=== PATIENT | male | born 1960 | race Caucasian/White ===

== ENCOUNTER 2017-02-16 09:27 | Inpatient (IN) | payer OTHER ==
[~2017-02-16] VITALS: Ht 180.3 cm; Wt 74.5 kg
[~2017-02-16 09:27] MED LIST: ETOMIDATE 20 MG/10 ML ONE; MIDAZOLAM 1 MG/ML, 5ML ONE; SUCCINYLCHOLINE 20 MG/ML, 10ML ONE
[2017-02-16] MEDS ORDERED: SODIUM CHLORIDE 0.9% 1,000 ML IV ONE (09:37)
[2017-02-16] MEDS ORDERED: ONDANSETRON 2MG/ML, 2ML ONE ×2 (09:47→13:04)
[2017-02-16] MEDS ORDERED: LORazepam 2 MG/ML, 1ML ONE ×7 (09:48→13:05)
[2017-02-16] MEDS: LORazepam 2 MG/ML, 1ML IVPush PRN ×8 (09:56→13:08)
[2017-02-16] MEDS ORDERED: SODIUM CHLORIDE FLUSH 10ML SYR IVF ONE (10:00)
[2017-02-16] MEDS ORDERED: PLEASE ENTER ALLERGIES MC SCH ×2 (10:00)
[2017-02-16] MEDS ORDERED: PLEASE ENTER HEIGHT AND WEIGHT MC SCH (10:00)
[2017-02-16] MEDS ORDERED: SODIUM CHLORIDE 0.9% 1,000ML IVBOLUS ONE ×2 (10:00→12:00)
[2017-02-16] MEDS ORDERED: ONDANSETRON 2MG/ML, 2ML IVPush ONE (10:00)
[2017-02-16 10:03] LABS: HEMATOCRIT 51.1 % (39.2-51.8); HEMOGLOBIN 17.4 g/dL (13.7-18.0); WHITE BLOOD COUNT 15.5 x10^3/uL (3.4-10)
[2017-02-16 10:17] LABS: BLOOD UREA NITROGEN 11 mg/dL (7-18)
[2017-02-16 10:25] LABS: ASPARTATE AMINO TRANSFERASE 160 U/L (15-37); IS PT STATUS REG ER OR PRE ER? YES
[2017-02-16] MEDS ORDERED: THIAMINE 100 MG in SODIUM CHLORIDE 0.9% 50 ML IVPB ONE (12:00)
[2017-02-16] MEDS ORDERED: CEFTRIAXONE PMX 1GM/50ML 50 ML IV ONE (12:00)
[2017-02-16] MEDS ORDERED: CEFTRIAXONE PMX 1GM/50ML 50 ML ONE (12:01)
[2017-02-16] MEDS ORDERED: MIDAZOLAM HCL 25 MG in SODIUM CHLORIDE 0.9% 245 ML IV PRN (14:12)
[2017-02-16] MEDS ORDERED: SUCCINYLCHOLINE 20 MG/ML, 10ML IVPush ONE (14:30)
[2017-02-16] MEDS ORDERED: ETOMIDATE 20 MG/10 ML IV ONE (14:30)
[2017-02-16] MEDS ORDERED: HYDROmorphone 1 MG/ML, 1ML ONE ×2 (14:38→16:12)
[2017-02-16] MEDS: HYDROmorphone 1 MG/ML, 1ML IVPush PRN ×2 (14:39→19:30)
[2017-02-16 14:49] LABS: ABG COLLECTION SITE RIGHT RADIAL; COLLATERAL CIRCULATION TESTING NORMAL
[2017-02-16] MEDS ORDERED: ACETAMINOPHEN 500 MG TABLET ONE (15:05)
[2017-02-16] MEDS ORDERED: ACETAMINOPHEN 500 MG TABLET PO ONE (15:30)
[2017-02-16] MEDS ORDERED: SENNA/DOCUSATE TABLET NG PRN (16:00)
[2017-02-16] MEDS ORDERED: SODIUM CHLORIDE 0.9% 1,000ML IV SCH (16:00)
[2017-02-16] MEDS ORDERED: BISACODYL 10 MG SUPP PR PRN ×2 (16:00→16:30)
[2017-02-16] MEDS ORDERED: PHARMACY MAY ADJ FOR RENAL FX MC SCH (16:00)
[2017-02-16] MEDS ORDERED: LIDOCAINE-MPF 1%, 2ML ENDO PRN (16:00)
[2017-02-16] MEDS ORDERED: LACTULOSE 20 GM/30 ML UDC NG PRN (16:00)
[2017-02-16] MEDS: ALBUTEROL/IPRATROPIUM 2.5MG/0.5MG, 3 ML INLINE SCH ×2 (16:00→20:00)
[2017-02-16] MEDS ORDERED: SENNOSIDES 8.8 MG/5 ML ORAL SOL NG PRN (16:00)
[2017-02-16] MEDS ORDERED: HEPARIN 5,000 UNITS/ML, 1ML ONE (16:12)
[2017-02-16] MEDS: HEPARIN 5,000 UNITS/ML, 1ML SQ SCH ×2 (16:15→23:53)
[2017-02-16] MEDS ORDERED: DIAZEPAM 5 MG/ML, 2ML ONE (16:16)
[2017-02-16] MEDS ORDERED: FAMOTIDINE 20 MG/2 ML ONE (16:16)
[2017-02-16] MEDS: FAMOTIDINE 20 MG/2 ML IV SCH (16:22)
[2017-02-16] MEDS: DIAZEPAM 5 MG/ML, 10ML VIAL IV SCH ×2 (16:22→21:04)
[2017-02-16] MEDS ORDERED: PIPERACILLIN/TAZO/PMX 3.375GM 50 ML ONE (16:23)
[2017-02-16] MEDS ORDERED: POLYETHYLENE GLYCOL 17 GM PACKET PO PRN (16:30)
[2017-02-16] MEDS ORDERED: DOCUSATE 100 MG CAPSULE PO PRN (16:30)
[2017-02-16] MEDS: PIPERACILLIN/TAZO/PMX 3.375GM 50 ML IV SCH ×2 (16:35→22:14)
[2017-02-16] MEDS: THIAMINE 100 MG, MVI ADULT 10 ML, FOLIC ACID 1 MG in D5%-0.9% NACL 1,000 ML IV SCH (17:00)
[2017-02-16 17:34] LABS: BLOOD UREA NITROGEN 11 mg/dL (7-18)
[2017-02-16] MEDS ORDERED: IBUPROFEN 200 MG TABLET ONE (18:22)
[2017-02-16] MEDS: IBUPROFEN 800 MG TABLET PO PRN (18:30)
[2017-02-16] MEDS ORDERED: ALBUTEROL/IPRATROPIUM 2.5MG/0.5MG, 3 ML ONE (18:35)
[2017-02-16] MEDS ORDERED: MIDAZOLAM HCL 50 MG in SODIUM CHLORIDE 0.9% 240 ML IV PRN (19:30)
[2017-02-16 20:00] VITALS: BP 81/54
[2017-02-16 20:14] LABS: ABG COLLECTION SITE RIGHT BRACHIAL
[2017-02-17] MEDS ORDERED: DIAZEPAM 5 MG/ML, 2ML IV PRN (00:30)
[2017-02-17] MEDS: DIAZEPAM 5 MG/ML, 10ML VIAL IV SCH ×6 (01:25→20:50)
[2017-02-17] MEDS: IBUPROFEN 800 MG TABLET PO PRN ×2 (03:32→16:08)
[2017-02-17 04:00] VITALS: BP 120/60
[2017-02-17 04:34] LABS: ABG COLLECTION SITE RIGHT RADIAL
[2017-02-17 04:35] LABS: COLLATERAL CIRCULATION TESTING NORMAL
[2017-02-17 04:45] LABS: BLOOD UREA NITROGEN 12 mg/dL (7-18)
[2017-02-17 04:48] LABS: ASPARTATE AMINO TRANSFERASE 144 U/L (15-37)
[2017-02-17 04:55] LABS: HEMATOCRIT 43.4 % (39.2-51.8); HEMOGLOBIN 14.7 g/dL (13.7-18.0); WHITE BLOOD COUNT 11.6 x10^3/uL (3.4-10)
[2017-02-17] MEDS: FAMOTIDINE 20 MG/2 ML IV SCH ×2 (05:03→16:11)
[2017-02-17] MEDS: PIPERACILLIN/TAZO/PMX 3.375GM 50 ML IV SCH ×4 (05:04→22:19)
[2017-02-17] MEDS: ALBUTEROL/IPRATROPIUM 2.5MG/0.5MG, 3 ML INLINE SCH ×7 (07:19→22:10)
[2017-02-17] MEDS: HEPARIN 5,000 UNITS/ML, 1ML SQ SCH ×2 (08:51→16:11)
[2017-02-17 09:59] LABS: DAU SCREEN DISCLAIMER
[2017-02-17] MEDS: SODIUM CHLORIDE 0.9% 1,000 ML IV SCH (10:54)
[2017-02-17] MEDS ORDERED: ACETAMINOPHEN 650 MG/20.3 ML UDC ONE (11:20)
[2017-02-17] MEDS ORDERED: ACETAMINOPHEN 650 MG/20.3 ML UDC PO PRN ×2 (11:30→20:00)
[2017-02-17] MEDS: THIAMINE 100 MG, MVI ADULT 10 ML, FOLIC ACID 1 MG in D5%-0.9% NACL 1,000 ML IV SCH (16:08)
[2017-02-17] MEDS ORDERED: DIAZEPAM 5 MG/ML, 10ML VIAL IVPush PRN ×2 (17:00→20:00)
[2017-02-17] MEDS ORDERED: BISACODYL 10 MG SUPP PR PRN ×2 (20:00)
[2017-02-17] MEDS ORDERED: SENNA/DOCUSATE TABLET NG PRN (20:00)
[2017-02-17] MEDS ORDERED: LACTULOSE 20 GM/30 ML UDC NG PRN (20:00)
[2017-02-17] MEDS ORDERED: DOCUSATE 100 MG CAPSULE PO PRN (20:00)
[2017-02-17] MEDS ORDERED: SENNOSIDES 8.8 MG/5 ML ORAL SOL NG PRN (20:00)
[2017-02-17] MEDS ORDERED: PHARMACY MAY ADJ FOR RENAL FX MC SCH (20:00)
[2017-02-17] MEDS: LIDOCAINE-MPF 1%, 2ML ENDO PRN (21:00)
[2017-02-18] MEDS: HEPARIN 5,000 UNITS/ML, 1ML SQ SCH ×3 (00:14→16:33)
[2017-02-18] MEDS: IBUPROFEN 800 MG TABLET PO PRN ×3 (00:38→20:12)
[2017-02-18] MEDS: DIAZEPAM 5 MG/ML, 10ML VIAL IV SCH ×5 (01:01→16:33)
[2017-02-18] MEDS: ALBUTEROL/IPRATROPIUM 2.5MG/0.5MG, 3 ML INLINE SCH ×6 (02:10→20:12)
[2017-02-18] MEDS: SODIUM CHLORIDE 0.9% 1,000 ML IV SCH ×3 (03:12→22:16)
[2017-02-18] MEDS: PIPERACILLIN/TAZO/PMX 3.375GM 50 ML IV SCH ×4 (03:48→22:19)
[2017-02-18] MEDS: FAMOTIDINE 20 MG/2 ML IV SCH ×2 (03:48→16:33)
[2017-02-18 04:00] VITALS: BP 105/63
[2017-02-18 04:45] LABS: ABG COLLECTION SITE RIGHT RADIAL; COLLATERAL CIRCULATION TESTING NORMAL
[2017-02-18 04:48] LABS: HEMATOCRIT 40.5 % (39.2-51.8); HEMOGLOBIN 13.8 g/dL (13.7-18.0); WHITE BLOOD COUNT 9.1 x10^3/uL (3.4-10)
[2017-02-18 04:57] LABS: ASPARTATE AMINO TRANSFERASE 111 U/L (15-37); BLOOD UREA NITROGEN 11 mg/dL (7-18)
[2017-02-18] MEDS ORDERED: DIAZEPAM 5 MG/ML, 10ML VIAL IV SCH (10:00)
[2017-02-18] MEDS ORDERED: POTASSIUM CHLORIDE 20 MEQ TAB.ER.PRT PO ONE (10:30)
[2017-02-18] MEDS ORDERED: DIAZEPAM 5 MG/ML, 10ML VIAL IVPush PRN (13:00)
[2017-02-18] MEDS: THIAMINE 100 MG, MVI ADULT 10 ML, FOLIC ACID 1 MG in D5%-0.9% NACL 1,000 ML IV SCH (16:30)
[2017-02-18] MEDS: FENTANYL PF 100 MCG/2ML IVPush PRN ×2 (20:13→20:40)
[2017-02-19] MEDS: HEPARIN 5,000 UNITS/ML, 1ML SQ SCH ×3 (00:15→16:58)
[2017-02-19] MEDS: ALBUTEROL/IPRATROPIUM 2.5MG/0.5MG, 3 ML INLINE SCH ×6 (02:00→22:00)
[2017-02-19 04:29] LABS: ABG COLLECTION SITE RIGHT RADIAL
[2017-02-19] MEDS: FAMOTIDINE 20 MG/2 ML IV SCH ×2 (04:29→16:57)
[2017-02-19] MEDS: PIPERACILLIN/TAZO/PMX 3.375GM 50 ML IV SCH ×4 (04:29→22:22)
[2017-02-19] MEDS: DIAZEPAM 5 MG/ML, 10ML VIAL IV SCH ×4 (04:29→22:22)
[2017-02-19 04:30] LABS: COLLATERAL CIRCULATION TESTING NORMAL
[2017-02-19 04:42] LABS: BLOOD UREA NITROGEN 9 mg/dL (7-18)
[2017-02-19 04:54] LABS: HEMOGLOBIN 13.7 g/dL (13.7-18.0); WHITE BLOOD COUNT 7.2 x10^3/uL (3.4-10)
[2017-02-19 05:00] VITALS: BP 153/85
[2017-02-19] MEDS: THIAMINE 100MG TABLET PO SCH (10:51)
[2017-02-19] MEDS: IBUPROFEN 800 MG TABLET PO PRN ×2 (10:51→21:06)
[2017-02-19] MEDS: MULTIVITAMIN 1 TABLET PO SCH (10:51)
[2017-02-19] MEDS: FOLIC ACID 1 MG TABLET PO SCH (10:52)
[2017-02-19] MEDS: FENTANYL PF 100 MCG/2ML IVPush PRN (21:06)
[2017-02-20] MEDS: HEPARIN 5,000 UNITS/ML, 1ML SQ SCH ×3 (00:30→18:25)
[2017-02-20] MEDS: ALBUTEROL/IPRATROPIUM 2.5MG/0.5MG, 3 ML INLINE SCH ×7 (01:31→21:21)
[2017-02-20 04:09] VITALS: BP 135/84
[2017-02-20 04:33] LABS: ABG COLLECTION SITE RIGHT RADIAL; COLLATERAL CIRCULATION TESTING NORMAL
[2017-02-20 04:39] LABS: HEMATOCRIT 40.8 % (39.2-51.8); HEMOGLOBIN 13.6 g/dL (13.7-18.0); WHITE BLOOD COUNT 6.4 x10^3/uL (3.4-10)
[2017-02-20] MEDS: DIAZEPAM 5 MG/ML, 10ML VIAL IV SCH ×4 (04:45→22:03)
[2017-02-20] MEDS: FAMOTIDINE 20 MG/2 ML IV SCH ×2 (04:46→18:25)
[2017-02-20] MEDS: PIPERACILLIN/TAZO/PMX 3.375GM 50 ML IV SCH (04:46)
[2017-02-20 04:49] LABS: ASPARTATE AMINO TRANSFERASE 76 U/L (15-37); BLOOD UREA NITROGEN 10 mg/dL (7-18)
[2017-02-20] MEDS ORDERED: POTASSIUM CHLORIDE 10% 40 MEQ/30 ML UDC PO ONE (07:30)
[2017-02-20] MEDS: AMPICILLIN/SULBACTAM 3 GM in SODIUM CHLORIDE 0.9% 100 ML IV SCH ×3 (07:37→20:25)
[2017-02-20] MEDS ORDERED: PROPOFOL 100 ML IV ONE (09:22)
[2017-02-20] MEDS: LIDOCAINE-MPF 1%, 2ML ENDO PRN (10:30)
[2017-02-20] MEDS: IBUPROFEN 800 MG TABLET PO PRN (12:22)
[2017-02-20] MEDS: FOLIC ACID 1 MG TABLET PO SCH (12:23)
[2017-02-20] MEDS: MULTIVITAMIN 1 TABLET PO SCH (12:23)
[2017-02-20] MEDS: THIAMINE 100MG TABLET PO SCH (12:23)
[2017-02-20] MEDS ORDERED: PROPOFOL 100 ML IV PRN (12:30)
[2017-02-21] MEDS: ALBUTEROL/IPRATROPIUM 2.5MG/0.5MG, 3 ML INLINE SCH ×6 (01:32→22:00)
[2017-02-21] MEDS: AMPICILLIN/SULBACTAM 3 GM in SODIUM CHLORIDE 0.9% 100 ML IV SCH ×4 (02:30→19:59)
[2017-02-21] MEDS: HEPARIN 5,000 UNITS/ML, 1ML SQ SCH ×4 (02:30→23:28)
[2017-02-21 04:21] VITALS: BP 136/77
[2017-02-21 04:29] LABS: ABG COLLECTION SITE LEFT RADIAL; COLLATERAL CIRCULATION TESTING NORMAL
[2017-02-21 04:30] LABS: HEMATOCRIT 41.2 % (39.2-51.8); HEMOGLOBIN 13.8 g/dL (13.7-18.0); WHITE BLOOD COUNT 8.3 x10^3/uL (3.4-10)
[2017-02-21 04:41] LABS: BLOOD UREA NITROGEN 15 mg/dL (7-18)
[2017-02-21] MEDS: DIAZEPAM 5 MG/ML, 10ML VIAL IV SCH ×4 (05:02→22:03)
[2017-02-21] MEDS: FAMOTIDINE 20 MG/2 ML IV SCH ×2 (05:02→15:56)
[2017-02-21] MEDS: IBUPROFEN 800 MG TABLET PO PRN ×2 (05:02→15:58)
[2017-02-21] MEDS: MULTIVITAMIN 1 TABLET PO SCH (08:21)
[2017-02-21] MEDS: THIAMINE 100MG TABLET PO SCH (08:21)
[2017-02-21] MEDS: FOLIC ACID 1 MG TABLET PO SCH (08:23)
[2017-02-21] MEDS: CIPROFLOXACIN OPHTH SOLN 0.3%, 5ML EACHEYE SCH (22:03)
[2017-02-22] MEDS: IBUPROFEN 800 MG TABLET PO PRN ×3 (00:13→22:08)
[2017-02-22] MEDS: AMPICILLIN/SULBACTAM 3 GM in SODIUM CHLORIDE 0.9% 100 ML IV SCH ×4 (01:16→19:43)
[2017-02-22] MEDS: ALBUTEROL/IPRATROPIUM 2.5MG/0.5MG, 3 ML INLINE SCH ×6 (02:00→22:00)
[2017-02-22] MEDS: DIAZEPAM 5 MG/ML, 10ML VIAL IV SCH ×4 (04:00→22:00)
[2017-02-22 04:36] LABS: ABG COLLECTION SITE LEFT RADIAL; COLLATERAL CIRCULATION TESTING NORMAL
[2017-02-22] MEDS: FAMOTIDINE 20 MG/2 ML IV SCH ×2 (04:36→16:45)
[2017-02-22 04:38] LABS: HEMATOCRIT 40.2 % (39.2-51.8); HEMOGLOBIN 13.5 g/dL (13.7-18.0); WHITE BLOOD COUNT 8.2 x10^3/uL (3.4-10)
[2017-02-22 04:47] LABS: BLOOD UREA NITROGEN 19 mg/dL (7-18)
[2017-02-22] MEDS: HEPARIN 5,000 UNITS/ML, 1ML SQ SCH ×3 (08:32→23:54)
[2017-02-22] MEDS: CIPROFLOXACIN OPHTH SOLN 0.3%, 5ML EACHEYE SCH ×2 (08:33→20:42)
[2017-02-22] MEDS: MULTIVITAMIN 1 TABLET PO SCH (08:33)
[2017-02-22] MEDS: FOLIC ACID 1 MG TABLET PO SCH (08:33)
[2017-02-22] MEDS: THIAMINE 100MG TABLET PO SCH (08:33)
[2017-02-22] MEDS ORDERED: SODIUM CHLORIDE 0.9% 250 ML IV SCH (14:00)
[2017-02-22] MEDS: hydrALAzine 20 MG/ML, 1ML IV PRN (20:42)
[2017-02-23] MEDS: AMPICILLIN/SULBACTAM 3 GM in SODIUM CHLORIDE 0.9% 100 ML IV SCH ×4 (01:24→21:54)
[2017-02-23] MEDS: ALBUTEROL/IPRATROPIUM 2.5MG/0.5MG, 3 ML INLINE SCH ×6 (02:40→22:15)
[2017-02-23] MEDS: DIAZEPAM 5 MG/ML, 10ML VIAL IV SCH ×4 (04:00→22:01)
[2017-02-23 04:24] LABS: ABG COLLECTION SITE RIGHT RADIAL; COLLATERAL CIRCULATION TESTING NORMAL
[2017-02-23 04:38] LABS: BLOOD UREA NITROGEN 22 mg/dL (7-18)
[2017-02-23 04:44] LABS: HEMATOCRIT 43.1 % (39.2-51.8); HEMOGLOBIN 14.3 g/dL (13.7-18.0); WHITE BLOOD COUNT 9.9 x10^3/uL (3.4-10)
[2017-02-23] MEDS: FAMOTIDINE 20 MG/2 ML IV SCH (05:03)
[2017-02-23] MEDS: HEPARIN 5,000 UNITS/ML, 1ML SQ SCH ×2 (09:06→16:14)
[2017-02-23] MEDS: FOLIC ACID 1 MG TABLET PO SCH (09:07)
[2017-02-23] MEDS: THIAMINE 100MG TABLET PO SCH (09:07)
[2017-02-23] MEDS: MULTIVITAMIN 1 TABLET PO SCH (09:07)
[2017-02-23] MEDS: CIPROFLOXACIN OPHTH SOLN 0.3%, 5ML EACHEYE SCH ×2 (09:07→21:57)
[2017-02-23] MEDS: IBUPROFEN 800 MG TABLET PO PRN (09:08)
[2017-02-23] MEDS: QUETIAPINE 25MG TABLET PO SCH ×2 (10:55→21:54)
[2017-02-23] MEDS ORDERED: IBUPROFEN 100 MG/5 ML UDC PO PRN ×2 (16:00)
[2017-02-23] MEDS ORDERED: POLYETHYLENE GLYCOL 17 GM PACKET PO PRN (16:00)
[2017-02-23] MEDS: SODIUM CHLORIDE 0.9% 1,000 ML IV SCH (22:01)
[2017-02-23] MEDS: FAMOTIDINE 40 MG/5 ML ORAL SUSP NG SCH (22:34)
[2017-02-24] MEDS: HEPARIN 5,000 UNITS/ML, 1ML SQ SCH ×4 (00:46→23:55)
[2017-02-24] MEDS: ALBUTEROL/IPRATROPIUM 2.5MG/0.5MG, 3 ML INLINE SCH ×6 (01:35→21:40)
[2017-02-24] MEDS: AMPICILLIN/SULBACTAM 3 GM in SODIUM CHLORIDE 0.9% 100 ML IV SCH ×4 (01:51→20:15)
[2017-02-24 04:31] LABS: ABG COLLECTION SITE RIGHT BRACHIAL
[2017-02-24 04:36] LABS: HEMATOCRIT 40.1 % (39.2-51.8); HEMOGLOBIN 13.5 g/dL (13.7-18.0); WHITE BLOOD COUNT 9.3 x10^3/uL (3.4-10)
[2017-02-24 04:44] LABS: BLOOD UREA NITROGEN 25 mg/dL (7-18)
[2017-02-24] MEDS: DIAZEPAM 5 MG/ML, 10ML VIAL IV SCH ×4 (04:48→22:01)
[2017-02-24] MEDS: QUETIAPINE 25MG TABLET PO SCH ×3 (04:48→20:14)
[2017-02-24] MEDS: CIPROFLOXACIN OPHTH SOLN 0.3%, 5ML EACHEYE SCH ×2 (09:12→21:03)
[2017-02-24] MEDS: THIAMINE 100MG TABLET PO SCH (09:12)
[2017-02-24] MEDS: FAMOTIDINE 40 MG/5 ML ORAL SUSP NG SCH ×2 (09:12→21:03)
[2017-02-24] MEDS: FOLIC ACID 1 MG TABLET PO SCH (09:13)
[2017-02-24] MEDS: MULTIVITAMIN LIQUID NG SCH (09:13)
[2017-02-24] MEDS: ACETAMINOPHEN 325 MG TABLET PO PRN ×2 (10:15→17:51)
[2017-02-24] MEDS ORDERED: BISACODYL 10 MG SUPP PR PRN ×2 (18:30)
[2017-02-24] MEDS ORDERED: LACTULOSE 20 GM/30 ML UDC NG PRN (18:30)
[2017-02-24] MEDS ORDERED: PHARMACY MAY ADJ FOR RENAL FX MC SCH (18:30)
[2017-02-24] MEDS ORDERED: POLYETHYLENE GLYCOL 17 GM PACKET PO PRN (18:30)
[2017-02-24] MEDS ORDERED: DOCUSATE 100 MG CAPSULE PO PRN (18:30)
[2017-02-24] MEDS: SODIUM CHLORIDE 0.9% 1,000 ML IV SCH (22:02)
[2017-02-25] MEDS: AMPICILLIN/SULBACTAM 3 GM in SODIUM CHLORIDE 0.9% 100 ML IV SCH ×2 (01:17→06:45)
[2017-02-25] MEDS: ALBUTEROL/IPRATROPIUM 2.5MG/0.5MG, 3 ML INLINE SCH ×6 (01:47→21:50)
[2017-02-25] MEDS: DIAZEPAM 5 MG/ML, 10ML VIAL IV SCH ×4 (03:48→22:07)
[2017-02-25] MEDS: QUETIAPINE 25MG TABLET PO SCH ×3 (03:48→20:00)
[2017-02-25 04:00] VITALS: BP 140/82
[2017-02-25 04:37] LABS: ABG COLLECTION SITE LEFT RADIAL; COLLATERAL CIRCULATION TESTING NORMAL
[2017-02-25 04:46] LABS: HEMATOCRIT 39.8 % (39.2-51.8); HEMOGLOBIN 13.4 g/dL (13.7-18.0); WHITE BLOOD COUNT 11.4 x10^3/uL (3.4-10)
[2017-02-25 04:47] LABS: BLOOD UREA NITROGEN 23 mg/dL (7-18)
[2017-02-25] MEDS: HEPARIN 5,000 UNITS/ML, 1ML SQ SCH ×3 (09:21→23:56)
[2017-02-25] MEDS: MULTIVITAMIN LIQUID NG SCH (09:21)
[2017-02-25] MEDS: CIPROFLOXACIN OPHTH SOLN 0.3%, 5ML EACHEYE SCH ×2 (09:21→20:38)
[2017-02-25] MEDS: FAMOTIDINE 40 MG/5 ML ORAL SUSP NG SCH ×2 (09:22→20:40)
[2017-02-25] MEDS: THIAMINE 100MG TABLET PO SCH (09:22)
[2017-02-25] MEDS: FOLIC ACID 1 MG TABLET PO SCH (09:22)
[2017-02-26] MEDS: ALBUTEROL/IPRATROPIUM 2.5MG/0.5MG, 3 ML INLINE SCH ×6 (01:24→22:00)
[2017-02-26] MEDS: QUETIAPINE 25MG TABLET PO SCH ×3 (03:32→19:56)
[2017-02-26] MEDS: DIAZEPAM 5 MG/ML, 10ML VIAL IV SCH ×4 (03:32→21:07)
[2017-02-26] MEDS: SODIUM CHLORIDE 0.9% 1,000 ML IV SCH (03:32)
[2017-02-26] MEDS: ACETAMINOPHEN 325 MG TABLET PO PRN (03:35)
[2017-02-26 03:56] VITALS: BP 148/90
[2017-02-26 04:26] LABS: ABG COLLECTION SITE RIGHT BRACHIAL
[2017-02-26 04:35] LABS: HEMATOCRIT 40.1 % (39.2-51.8); HEMOGLOBIN 13.6 g/dL (13.7-18.0)
[2017-02-26 04:44] LABS: BLOOD UREA NITROGEN 25 mg/dL (7-18)
[2017-02-26 04:45] LABS: ASPARTATE AMINO TRANSFERASE 44 U/L (15-37)
[2017-02-26] MEDS: THIAMINE 100MG TABLET PO SCH (08:42)
[2017-02-26] MEDS: CIPROFLOXACIN OPHTH SOLN 0.3%, 5ML EACHEYE SCH ×2 (08:42→21:07)
[2017-02-26] MEDS: MULTIVITAMIN LIQUID NG SCH (08:43)
[2017-02-26] MEDS: FOLIC ACID 1 MG TABLET PO SCH (08:43)
[2017-02-26] MEDS: FAMOTIDINE 40 MG/5 ML ORAL SUSP NG SCH ×2 (08:43→21:07)
[2017-02-26] MEDS: HEPARIN 5,000 UNITS/ML, 1ML SQ SCH ×2 (08:43→16:18)
[2017-02-27] MEDS: HEPARIN 5,000 UNITS/ML, 1ML SQ SCH ×3 (00:23→16:00)
[2017-02-27] MEDS: SODIUM CHLORIDE 0.9% 1,000 ML IV SCH (00:25)
[2017-02-27] MEDS: ALBUTEROL/IPRATROPIUM 2.5MG/0.5MG, 3 ML INLINE SCH ×3 (01:50→18:00)
[2017-02-27] MEDS: DIAZEPAM 5 MG/ML, 10ML VIAL IV SCH ×4 (03:30→22:33)
[2017-02-27 04:00] VITALS: BP 128/74
[2017-02-27] MEDS: QUETIAPINE 25MG TABLET PO SCH ×3 (04:18→20:07)
[2017-02-27 04:19] LABS: ABG COLLECTION SITE RIGHT BRACHIAL
[2017-02-27 04:25] LABS: HEMATOCRIT 40.2 % (39.2-51.8); HEMOGLOBIN 13.4 g/dL (13.7-18.0); WHITE BLOOD COUNT 12.9 x10^3/uL (3.4-10)
[2017-02-27 04:28] LABS: BLOOD UREA NITROGEN 25 mg/dL (7-18)
[2017-02-27] MEDS: CIPROFLOXACIN OPHTH SOLN 0.3%, 5ML EACHEYE SCH ×2 (08:49→20:28)
[2017-02-27] MEDS: MULTIVITAMIN LIQUID NG SCH (08:50)
[2017-02-27] MEDS: THIAMINE 100MG TABLET PO SCH (08:50)
[2017-02-27] MEDS: FAMOTIDINE 40 MG/5 ML ORAL SUSP NG SCH ×2 (08:50→20:07)
[2017-02-27] MEDS: FOLIC ACID 1 MG TABLET PO SCH (08:50)
[2017-02-27] MEDS: hydrALAzine 20 MG/ML, 1ML IV PRN (20:25)
[2017-02-28] MEDS: SODIUM CHLORIDE 0.9% 1,000 ML IV SCH ×2 (00:42→17:12)
[2017-02-28] MEDS: HEPARIN 5,000 UNITS/ML, 1ML SQ SCH ×3 (00:58→17:11)
[2017-02-28] MEDS: QUETIAPINE 25MG TABLET PO SCH ×2 (03:30→11:30)
[2017-02-28 04:37] LABS: ABG COLLECTION SITE LEFT RADIAL; COLLATERAL CIRCULATION TESTING NORMAL
[2017-02-28 04:39] LABS: HEMATOCRIT 44.4 % (39.2-51.8); WHITE BLOOD COUNT 11.3 x10^3/uL (3.4-10)
[2017-02-28 04:51] LABS: BLOOD UREA NITROGEN 26 mg/dL (7-18)
[2017-02-28] MEDS: DIAZEPAM 5 MG/ML, 10ML VIAL IV SCH (05:21)
[2017-02-28 05:49] VITALS: BP 151/90
[2017-02-28] MEDS: ALBUTEROL/IPRATROPIUM 2.5MG/0.5MG, 3 ML INLINE SCH ×3 (07:10→19:15)
[2017-02-28] MEDS: FOLIC ACID 1 MG TABLET PO SCH (09:00)
[2017-02-28] MEDS: MULTIVITAMIN LIQUID NG SCH (09:00)
[2017-02-28] MEDS: THIAMINE 100MG TABLET PO SCH (09:00)
[2017-02-28] MEDS: CIPROFLOXACIN OPHTH SOLN 0.3%, 5ML EACHEYE SCH ×2 (09:42→21:35)
[2017-02-28] MEDS ORDERED: FOLIC ACID 1 MG in DEXTROSE 5% 50 ML IV SCH (17:00)
[2017-02-28] MEDS ORDERED: THIAMINE 100 MG in SODIUM CHLORIDE 0.9% 50 ML IV ONE (17:00)
[2017-02-28] MEDS: FAMOTIDINE 20 MG/2 ML IVPush SCH (21:34)
[2017-03-01] MEDS: HEPARIN 5,000 UNITS/ML, 1ML SQ SCH ×3 (00:47→15:32)
[2017-03-01 04:32] LABS: HEMATOCRIT 45.6 % (39.2-51.8); HEMOGLOBIN 15.3 g/dL (13.7-18.0); WHITE BLOOD COUNT 11.5 x10^3/uL (3.4-10)
[2017-03-01 04:35] LABS: ABG COLLECTION SITE LEFT RADIAL; COLLATERAL CIRCULATION TESTING NORMAL
[2017-03-01 04:48] LABS: BLOOD UREA NITROGEN 33 mg/dL (7-18)
[2017-03-01 05:23] VITALS: BP 166/103
[2017-03-01] MEDS: DIAZEPAM 5 MG/ML, 10ML VIAL IV PRN ×2 (06:00→06:59)
[2017-03-01] MEDS: FAMOTIDINE 20 MG/2 ML IVPush SCH ×2 (09:45→20:30)
[2017-03-01] MEDS: CIPROFLOXACIN OPHTH SOLN 0.3%, 5ML EACHEYE SCH ×2 (09:46→20:30)
[2017-03-01] MEDS: SODIUM CHLORIDE 0.9% 1,000 ML IV SCH (13:02)
[2017-03-01] MEDS: THIAMINE 100MG TABLET PO SCH (15:31)
[2017-03-01] MEDS: FOLIC ACID 1 MG TABLET PO SCH (15:31)
[2017-03-01] MEDS: MULTIVITAMIN LIQUID NG SCH (15:32)
[2017-03-01] MEDS: ALBUTEROL/IPRATROPIUM 2.5MG/0.5MG, 3 ML INLINE SCH (18:55)
[2017-03-02] MEDS: HEPARIN 5,000 UNITS/ML, 1ML SQ SCH ×3 (00:30→16:47)
[2017-03-02] MEDS: SODIUM CHLORIDE 0.9% 1,000 ML IV SCH (02:21)
[2017-03-02 04:14] VITALS: BP 154/87
[2017-03-02 04:41] LABS: ABG COLLECTION SITE RIGHT BRACHIAL
[2017-03-02 04:57] LABS: HEMATOCRIT 44.4 % (39.2-51.8); HEMOGLOBIN 15.1 g/dL (13.7-18.0)
[2017-03-02 05:25] LABS: BLOOD UREA NITROGEN 32 mg/dL (7-18)
[2017-03-02] MEDS: ALBUTEROL/IPRATROPIUM 2.5MG/0.5MG, 3 ML INLINE SCH ×2 (07:17→20:06)
[2017-03-02] MEDS: CIPROFLOXACIN OPHTH SOLN 0.3%, 5ML EACHEYE SCH (08:14)
[2017-03-02] MEDS: FAMOTIDINE 20 MG/2 ML IVPush SCH ×2 (08:14→21:10)
[2017-03-02] MEDS: MULTIVITAMIN LIQUID NG SCH (08:14)
[2017-03-02] MEDS: FOLIC ACID 1 MG TABLET PO SCH (08:15)
[2017-03-02] MEDS: THIAMINE 100MG TABLET PO SCH (08:15)
[2017-03-02] MEDS ORDERED: FUROSEMIDE 40 MG/4 ML ONE (10:07)
[2017-03-02] MEDS ORDERED: VANCOMYCIN PER PHARMACY MC PRN (10:30)
[2017-03-02] MEDS ORDERED: FUROSEMIDE 40 MG/4 ML IV ONE (10:30)
[2017-03-02] MEDS ORDERED: POTASSIUM CHLORIDE 20 MEQ PACKET PO ONE (10:30)
[2017-03-02 10:44] LABS: ABG COLLECTION SITE RIGHT RADIAL
[2017-03-02 10:45] LABS: COLLATERAL CIRCULATION TESTING NORMAL
[2017-03-02] MEDS ORDERED: PHARMACOKINETIC MONITORING MC PRN (11:00)
[2017-03-02] MEDS ORDERED: PHARMACOKINETIC CONSULTATION MC ONE (11:00)
[2017-03-02] MEDS: PIPERACILLIN/TAZO/PMX 3.375GM 50 ML IV SCH ×3 (11:33→22:24)
[2017-03-02] MEDS: VANCOMYCIN 1,500 MG in SODIUM CHLORIDE 0.9% 250 ML IV SCH (11:33)
[2017-03-03] MEDS: HEPARIN 5,000 UNITS/ML, 1ML SQ SCH ×3 (00:26→16:05)
[2017-03-03 04:00] VITALS: BP 144/92
[2017-03-03] MEDS: PIPERACILLIN/TAZO/PMX 3.375GM 50 ML IV SCH ×4 (04:25→22:47)
[2017-03-03 04:39] LABS: HEMATOCRIT 46.7 % (39.2-51.8); HEMOGLOBIN 15.7 g/dL (13.7-18.0); WHITE BLOOD COUNT 12.5 x10^3/uL (3.4-10)
[2017-03-03 04:43] LABS: ABG COLLECTION SITE RIGHT BRACHIAL
[2017-03-03 04:47] LABS: BLOOD UREA NITROGEN 34 mg/dL (7-18)
[2017-03-03] MEDS: VANCOMYCIN 1,500 MG in SODIUM CHLORIDE 0.9% 250 ML IV SCH (04:56)
[2017-03-03] MEDS: ALBUTEROL/IPRATROPIUM 2.5MG/0.5MG, 3 ML INLINE SCH ×2 (07:18→19:14)
[2017-03-03] MEDS: FOLIC ACID 1 MG TABLET PO SCH (09:16)
[2017-03-03] MEDS: MULTIVITAMIN LIQUID NG SCH (09:16)
[2017-03-03] MEDS: THIAMINE 100MG TABLET PO SCH (09:16)
[2017-03-03] MEDS: FAMOTIDINE 20 MG/2 ML IVPush SCH ×2 (09:16→20:57)
[2017-03-03] MEDS ORDERED: PHARMACY MAY ADJ FOR RENAL FX MC SCH (19:30)
[2017-03-03] MEDS ORDERED: DIAZEPAM 5 MG/ML, 10ML VIAL IV PRN (19:30)
[2017-03-03] MEDS ORDERED: LACTULOSE 20 GM/30 ML UDC NG PRN (19:30)
[2017-03-03] MEDS ORDERED: BISACODYL 10 MG SUPP PR PRN (19:30)
[2017-03-04] MEDS: HEPARIN 5,000 UNITS/ML, 1ML SQ SCH ×3 (00:04→15:44)
[2017-03-04 04:00] VITALS: BP 152/102
[2017-03-04] MEDS: PIPERACILLIN/TAZO/PMX 3.375GM 50 ML IV SCH ×4 (04:16→22:46)
[2017-03-04 04:43] LABS: HEMATOCRIT 45.8 % (39.2-51.8); HEMOGLOBIN 15.4 g/dL (13.7-18.0); WHITE BLOOD COUNT 13.3 x10^3/uL (3.4-10)
[2017-03-04 04:52] LABS: BLOOD UREA NITROGEN 33 mg/dL (7-18)
[2017-03-04] MEDS: ALBUTEROL/IPRATROPIUM 2.5MG/0.5MG, 3 ML INLINE SCH ×2 (08:21→19:05)
[2017-03-04] MEDS: MULTIVITAMIN LIQUID NG SCH (09:02)
[2017-03-04] MEDS: FOLIC ACID 1 MG TABLET PO SCH (09:02)
[2017-03-04] MEDS: THIAMINE 100MG TABLET PO SCH (09:02)
[2017-03-05] MEDS: HEPARIN 5,000 UNITS/ML, 1ML SQ SCH ×3 (00:12→16:14)
[2017-03-05] MEDS: PIPERACILLIN/TAZO/PMX 3.375GM 50 ML IV SCH ×4 (03:54→22:24)
[2017-03-05 04:00] VITALS: BP 145/95
[2017-03-05 05:35] LABS: HEMATOCRIT 45.6 % (39.2-51.8); HEMOGLOBIN 15.4 g/dL (13.7-18.0); WHITE BLOOD COUNT 12.6 x10^3/uL (3.4-10)
[2017-03-05 05:53] LABS: BLOOD UREA NITROGEN 34 mg/dL (7-18)
[2017-03-05] MEDS: ALBUTEROL/IPRATROPIUM 2.5MG/0.5MG, 3 ML INLINE SCH ×2 (09:15→19:20)
[2017-03-05] MEDS: FOLIC ACID 1 MG TABLET PO SCH (09:27)
[2017-03-05] MEDS: THIAMINE 100MG TABLET PO SCH (09:27)
[2017-03-05] MEDS: MULTIVITAMIN LIQUID NG SCH (09:27)
[2017-03-05] MEDS: hydrALAzine 20 MG/ML, 1ML IV PRN (22:19)
[2017-03-06] MEDS: HEPARIN 5,000 UNITS/ML, 1ML SQ SCH ×4 (00:10→23:50)
[2017-03-06 04:00] VITALS: BP 133/80
[2017-03-06] MEDS: PIPERACILLIN/TAZO/PMX 3.375GM 50 ML IV SCH ×4 (04:20→22:38)
[2017-03-06 04:32] LABS: HEMATOCRIT 47.9 % (39.2-51.8); HEMOGLOBIN 15.9 g/dL (13.7-18.0); WHITE BLOOD COUNT 14.5 x10^3/uL (3.4-10)
[2017-03-06 04:42] LABS: BLOOD UREA NITROGEN 34 mg/dL (7-18)
[2017-03-06] MEDS: ALBUTEROL/IPRATROPIUM 2.5MG/0.5MG, 3 ML INLINE SCH ×2 (07:20→19:38)
[2017-03-06] MEDS: THIAMINE 100MG TABLET PO SCH (11:09)
[2017-03-06] MEDS: MULTIVITAMIN LIQUID NG SCH (11:09)
[2017-03-06] MEDS: FOLIC ACID 1 MG TABLET PO SCH (11:09)
[2017-03-06] MEDS: ACETAMINOPHEN 325 MG TABLET PO PRN (16:22)
[2017-03-07] MEDS: PIPERACILLIN/TAZO/PMX 3.375GM 50 ML IV SCH ×4 (04:30→22:06)
[2017-03-07] MEDS: ALBUTEROL/IPRATROPIUM 2.5MG/0.5MG, 3 ML INLINE SCH ×2 (09:28→20:30)
[2017-03-07] MEDS ORDERED: SODIUM CHLORIDE 0.9% IV SCH (09:30)
[2017-03-07] MEDS ORDERED: THIAMINE IV SCH (09:30)
[2017-03-07] MEDS: HEPARIN 5,000 UNITS/ML, 1ML SQ SCH (12:24)
[2017-03-07] MEDS: MULTIVITAMIN LIQUID NG SCH (12:25)
[2017-03-07] MEDS: FOLIC ACID 1 MG TABLET PO SCH (12:29)
[2017-03-07] MEDS ORDERED: SCOPOLAMINE PATCH, 1.5MG PATCH.TD72 TD PRN (16:30)
[2017-03-07] MEDS ORDERED: ATROPINE OPHTH SOLN 1%, 5ML BC PRN (16:30)
[2017-03-07] MEDS ORDERED: LORazepam 2 MG/ML, 1ML IVPush PRN (16:30)
[2017-03-07] MEDS: MORPHINE SULFATE 4 MG/ML, 1ML IVPush PRN (17:25)
[2017-03-07 22:30] VITALS: BP 155/95
[2017-03-08] MEDS: MORPHINE SULFATE 4 MG/ML, 1ML IVPush PRN ×2 (08:56→13:38)
[2017-03-08 14:30] VITALS: BP 133/97
== END 2017-03-08 14:36 | disposition hospice, home (50) | DRG 166 ==
LOC: ED 12:26 → EDIP 13:35 → ICU 19:34 → CCU 02-23 15:09 → 4NOR 03-07 23:25
PROVIDERS: ADMIT Hospitalist; ATTEND Hospitalist
PROC: 0BH17EZ Insertion of Endotracheal Airway into Trachea, Via Natural or Artificial Opening (ICD-10-PCS; principal; 2017-02-16)
PROC: 5A1955Z Respiratory Ventilation, Greater than 96 Consecutive Hours (ICD-10-PCS; 2017-02-16)
PROC: 0T9B70Z Drainage of Bladder with Drainage Device, Via Natural or Artificial Opening (ICD-10-PCS; 2017-02-17)
PROC: 0B9F8ZX Drainage of Right Lower Lung Lobe, Via Natural or Artificial Opening Endoscopic, Diagnostic (ICD-10-PCS; 2017-02-20)
DX: J96.00 Acute respiratory failure, unspecified whether with hypoxia or hypercapnia (principal); J69.0 Pneumonitis due to inhalation of food and vomit; G93.41 Metabolic encephalopathy; F10.231 Alcohol dependence with withdrawal delirium; R13.10 Dysphagia, unspecified; I47.1 Supraventricular tachycardia; E87.1 Hypo-osmolality and hyponatremia; J98.11 Atelectasis; K70.10 Alcoholic hepatitis without ascites; W19.XXXA Unspecified fall, initial encounter; E86.0 Dehydration; F17.200 Nicotine dependence, unspecified, uncomplicated; I10 Essential (primary) hypertension; S80.211A Abrasion, right knee, initial encounter; Y92.009 Unspecified place in unspecified non-institutional (private) residence as the place of occurrence of the external cause
CPT/HCPCS: 31500; 31622; 31624; 36415; 36600; 51702; 70450; 71010; 74000; 74230; 80048; 80053; 80307; 81001; 82140; 82803; 83605; 83690; 83735; 84100; 84478; 84484; 85025; 85610; 85730; 86480; 86580; 87040; 87070; 87081; 87086; 87205; 93005; 94002; 94003; 94640; 96361; 96365; 96375; 96376; 99292; J0295; J0696; J1170; J1644; J1940; J2250; J2405; J2543; J3010; J3360; J3370; J3411; J3490; J7042; J7620; J0330; J0360; J2060; J7030; J7050; S0028